=== PATIENT | male | born 1960 | race Hispanic/Latino ===

== ENCOUNTER 2018-12-31 00:23 | Observation (INO) | payer BC, OTHER ==
[~2018-12-31] VITALS: Ht 157.5 cm; Wt 67.2 kg
[2018-12-31 01:37] VITALS: BP 144/69
--- NOTE | 2018-12-31 01:37 | NUR ---
Admission note: Arrived from [facility] [place] via EMS ( [facility] AOx4. Pt. very cooperative. Placed in bed comfortably. Denies feeling of pain at this time. Has IV site to RAC #20 g with NS 1L at 700 cc level - patent and intact. Press Assistant And Feeder and on-call Hospitalist made aware.VS checked and recorded. Assessment done. (See CPOE flow chart for full assessment). JEAN Feldman came in to see and assess pt. Orders checked and carried out. Plan of care initiated. Oriented to room and use of call light. Policies and procedures explained. Verbalized understanding. Kept monitored and watched out for any unusual changes. Needs attended and cared for. No apparent distress noted.
[2018-12-31] MEDS: SODIUM CHLORIDE 0.9% 1000ML 1,000 ML IV SCH ×5 (02:09→06:17)
[2018-12-31] MEDS ORDERED: LACTULOSE 20 GM/30 ML UDCUP PO PRN (02:15)
[2018-12-31] MEDS ORDERED: HYDRALAZINE HCL 20 MG/ML VIAL IV PRN (02:15)
[2018-12-31] MEDS ORDERED: ONDANSETRON HCL 4 MG/2 ML VIAL IV PRN (02:15)
[2018-12-31] MEDS ORDERED: ACETAMINOPHEN 325 MG TAB PO PRN ×2 (02:15)
[2018-12-31] MEDS ORDERED: ROSU10TA28 PO (02:30)
[2018-12-31] MEDS ORDERED: SITA1TBM4 PO (02:30)
[2018-12-31] MEDS ORDERED: LISI2.5T2 PO (02:30)
[2018-12-31] MEDS ORDERED: ONDA4TAB10 PO (02:30)
[2018-12-31 03:00] VITALS: BP 129/58
[2018-12-31 04:35] LABS: BASOPHILS % (AUTO) 0.2 % (0.0-5.0); EOSINOPHILS % (AUTO) 1.6 % (0.0-8.0); HEMATOCRIT 37.5 % (42-54); LYMPHOCYTES % (AUTO) 20.9 % (21.0-51.0); MEAN CORPUSCULAR HEMOGLOBIN 30.5 pg (27.0-33.0); MEAN CORPUSCULAR HGB CONC 34.8 g/dL (32.0-36.0); MEAN CORPUSCULAR VOLUME 87.6 fL (79-99); MONOCYTES % (AUTO) 10.4 % (3.0-13.0); NEUTROPHILS % (AUTO) 66.9 % (40.0-77.0); NUCLEATED RED BLOOD CELLS 0.1 % (0.0-0.19); PLATELET COUNT (AUTO) 187 K/uL (130-400); RED BLOOD CELL COUNT(AUTO) 4.28 MIL/uL (4.50-6.20); RED CELL DISTRIBUTION WIDTH 13.2 % (11.0-15.5); WHITE BLOOD COUNT (AUTO) 8.1 K/uL (4.8-10.8)
[2018-12-31 05:11] LABS: ALBUMIN 3.7 g/dL (3.5-5.0); BILIRUBIN,TOTAL 1.4 mg/dL (0.2-1.0); CREATININE 0.9 mg/dL (0.5-1.5); POTASSIUM 3.9 mmol/L (3.5-5.1)
[2018-12-31] MEDS: INSULIN HUMULIN R 100 UNIT/ML 3ML SQ SCH ×3 (05:33→16:30)
[2018-12-31 07:00] VITALS: BP 132/71
[2018-12-31] MEDS ORDERED: FAMOTIDINE/PF 20 MG/2 ML VIAL IV SCH (09:00)
[2018-12-31] MEDS ORDERED: ENOXAPARIN SODIUM 40 MG/0.4 ML SYRINGE SQ SCH (09:00)
[2018-12-31] MEDS ORDERED: LISINOPRIL 2.5 MG TABLET PO SCH (09:00)
--- NOTE | 2018-12-31 09:13 | NUR ---
REviewed labs and exams with Dr. Reid, received orders to advance diet to [facility] and advance if tolerated.
[2018-12-31 11:00] VITALS: BP 132/68
[2018-12-31 12:30] LABS: APPEARANCE,URINE Clear (CLEAR); BILIRUBIN,URINE Negative (NEGATIVE); COLOR,URINE Yellow (YELLOW); GLUCOSE, URINE (UA) Negative (NEGATIVE); KETONES,URINE Negative (NEGATIVE); LEUKOCYTE ESTERASE ,URINE Negative (NEGATIVE); NITRATE,URINE Negative (NEGATIVE); OCCULT BLOOD,URINE Negative (NEGATIVE); PH,URINE 7.5 (5.0-8.0); PROTEIN,URINE Negative (NEGATIVE); UROBILINOGEN,URINE 0.2 mg/dL (0.2-1.0)
[2018-12-31 16:00] VITALS: BP 141/71
--- NOTE | 2018-12-31 17:50 | NUR ---
DISCHARGED NOW USING TEACH BACK. INST. GIVEN AND BOTH HE AND HIS VERBALIZED UNDERSTANDING. WILL FOLLOW UP WITH PCP IN 2 TO 3 DAYS. SALINE LOCK REMOVED PRIOR TO DC. TOLERATED DIET WELL, NO FURTHER ABD. PAIN.
[2018-12-31] MEDS ORDERED: ATORVASTATIN CALCIUM 40 MG TABLET PO SCH (21:00)
== END 2018-12-31 18:15 | disposition home or self-care (01) ==
LOC: 3DH 01:26
PROVIDERS: ADMIT Hospitalist; ATTEND Hospitalist
DX: K85.90 Acute pancreatitis without necrosis or infection, unspecified (principal); R11.2 Nausea with vomiting, unspecified; R00.1 Bradycardia, unspecified; I10 Essential (primary) hypertension; E11.9 Type 2 diabetes mellitus without complications; E78.5 Hyperlipidemia, unspecified; Z79.84 Long term (current) use of oral hypoglycemic drugs; Z79.899 Other long term (current) drug therapy
CPT/HCPCS: 36415; 80053; 81003; 82948 ×3; 84484; 85025; 93005; 96361; 96372; 96374; G0378 ×18; J1650; J3490